=== PATIENT | male | born 1960 | race Caucasian/White ===

== ENCOUNTER → 2022-02-13 | Outpatient (CLI) | payer SELFPAY ==
[~2022-02-13] MED LIST: ALBU90OI INH; ASTEPRO205.5 MCG/; B-COMPLEX PLUS1 EACH; BP MED; BUDE6HFA INH; CYCL10 PO; ERGO400; HYDACE5 PO; Lisinopril2.5 MG; MONT4 PO; MUCINEX COLD &177 ML; Multiple Vitam1 EAC1; NAPR250; NAPR375 PO; OXYACE5T PO; PRED10 PO; PROM25 PO; Percocet 5-3251 EACH PO; Prinivil10 MG PO; RANI150; TAMS.4ER PO; TOCO400; Valium5 MG PO; Vitamin C100 M1
[2022-02-13 17:52] LABS: BASOPHILS ABSOLUTE AUTO 0.04 K/mm3 (0.00-0.23); BASOPHILS PERCENT AUTO 1 % (0-2); EOSINOPHILS ABSOLUTE AUTO 0.11 K/mm3 (0.00-0.68); EOSINOPHILS PERCENT AUTO 1 % (0-6); Hematocrit 49.6 % (37.0-53.0); Hemoglobin 17.1 g/dL (13.5-17.5); IMMATURE GRAN ABSOLUTE AUTO 0.03 K/mm3 (0.00-0.10); IMMATURE GRAN PERCENT AUTO 0 % (0-1); LYMPHOCYTES ABSOLUTE AUTO 2.84 K/mm3 (0.84-5.20); LYMPHOCYTES PERCENT AUTO 36 % (21-46); MONOCYTES ABSOLUTE AUTO 0.56 K/mm3 (0.16-1.47); MONOCYTES PERCENT AUTO 7 % (4-13); Mean Corpuscular HGB 31.3 pg (26.0-34.0); Mean Corpuscular HGB Conc 34.5 g/dL (31.5-36.5); Mean Corpuscular Volume 91 fL (80-100); Mean Platelet Volume 9.8 fL (9.1-12.4); NEUTROPHILS ABSOLUTE AUTO 4.33 K/mm3 (1.96-9.15); NEUTROPHILS PERCENT AUTO 55 % (41-73); Platelet Count 174 K/mm3 (150-400); RDW Coefficient Variation 12.5 % (11.7-14.2); RDW Standard Deviation 41.3 fL (35.1-46.3); Red Blood Cell Count 5.46 M/mm3 (4.30-5.90); White Blood Cell Count 7.91 K/mm3 (4.00-11.30)
== END | disposition home or self-care (01) ==
LOC: LAB SHORT 17:47
PROVIDERS: Physician Assistant Surgical
DX: R06.00 Dyspnea, unspecified (principal)
CPT/HCPCS: 83880; 84484; 85025

== ENCOUNTER 2024-11-23 12:28 | Day surgery (SDC) | payer OTHER ==
[~2024-11-23] VITALS: Ht 172.7 cm; Wt 207.0 kg
[~2024-11-23 12:28] MED LIST changes: +Atropine Sulfate 0.1 MG/ML 10ML SYR ONE; +Glycopyrrolate 0.2 MG/ML 1MLVIAL ONE; +Lactated Ringer's 1,000 ML IV ONE; +Lidocaine 2% 5 ML SDV ONE; +Methylene Blue 1% 100 MG/10 ML VIAL ONE; +Ondansetron HCl 2 MG / ML 2ML Vial ONE; +ePHEDrine Sulfate 50 MG/ML 1ML Injection ONE
[2024-11-23] MEDS ORDERED: propofoL 50 ML IV ONE ×2 (12:37→14:06)
[2024-11-23] MEDS ORDERED: OMEP20ER (12:50)
[2024-11-23] MEDS ORDERED: FEROSUL325 MG (12:50)
[2024-11-23] MEDS ORDERED: MONT10T (12:50)
[2024-11-23] MEDS ORDERED: PSEU120ER (12:51)
[2024-11-23] MEDS ORDERED: WIXELA 250-501 EAC1 (12:51)
[2024-11-23] MEDS ORDERED: Lactated Ringer's 1,000 ML IV ONE (13:15)
[2024-11-23 15:01] VITALS: BP 119/77
== END 2024-11-23 14:53 | disposition home or self-care (01) ==
LOC: ORSCSDS 12:28
PROVIDERS: Specialist
PROC: 0DBM8ZX Excision of Descending Colon, Via Natural or Artificial Opening Endoscopic, Diagnostic (ICD-10-PCS; principal; 2024-11-23 14:00)
PROC: 0DB78ZX Excision of Stomach, Pylorus, Via Natural or Artificial Opening Endoscopic, Diagnostic (ICD-10-PCS; principal; 2024-11-23 14:00)
PROC: 0DBN8ZX Excision of Sigmoid Colon, Via Natural or Artificial Opening Endoscopic, Diagnostic (ICD-10-PCS; principal; 2024-11-23 14:00)
DX: Z12.11 Encounter for screening for malignant neoplasm of colon (principal); Z86.0100 Personal history of colon polyps, unspecified; K29.70 Gastritis, unspecified, without bleeding; D50.9 Iron deficiency anemia, unspecified; K21.9 Gastro-esophageal reflux disease without esophagitis; K31.9 Disease of stomach and duodenum, unspecified; D12.4 Benign neoplasm of descending colon; K63.5 Polyp of colon; K57.30 Diverticulosis of large intestine without perforation or abscess without bleeding; G47.33 Obstructive sleep apnea (adult) (pediatric); I10 Essential (primary) hypertension; J45.909 Unspecified asthma, uncomplicated; G40.909 Epilepsy, unspecified, not intractable, without status epilepticus; Z79.899 Other long term (current) drug therapy
CPT/HCPCS: 82947; 88305; 88342; J0461; J2405; J2704; J7120; Q9968

== ENCOUNTER → 2025-07-30 | Outpatient (CLI) | payer OTHER ==
[~2025-07-30] MED LIST changes: -Atropine Sulfate 0.1 MG/ML 10ML SYR ONE; +FEROSUL325 MG; -Glycopyrrolate 0.2 MG/ML 1MLVIAL ONE; -Lactated Ringer's 1,000 ML IV ONE; -Lidocaine 2% 5 ML SDV ONE; +MONT10T; -Methylene Blue 1% 100 MG/10 ML VIAL ONE; +OMEP20ER; -Ondansetron HCl 2 MG / ML 2ML Vial ONE; +PSEU120ER; +WIXELA 250-501 EAC1; -ePHEDrine Sulfate 50 MG/ML 1ML Injection ONE
[2025-07-30 14:17] LABS: BASOPHILS ABSOLUTE AUTO 0.05 K/mm3 (0.00-0.23); BASOPHILS PERCENT AUTO 1 % (0-2); EOSINOPHILS ABSOLUTE AUTO 0.06 K/mm3 (0.00-0.68); EOSINOPHILS PERCENT AUTO 1 % (0-6); Hematocrit 51.3 % (37.0-53.0); Hemoglobin 17.2 g/dL (13.5-17.5); IMMATURE GRAN ABSOLUTE AUTO 0.03 K/mm3 (0.00-0.10); IMMATURE GRAN PERCENT AUTO 0 % (0-1); LYMPHOCYTES ABSOLUTE AUTO 1.94 K/mm3 (0.84-5.20); LYMPHOCYTES PERCENT AUTO 24 % (21-46); MONOCYTES ABSOLUTE AUTO 0.65 K/mm3 (0.16-1.47); MONOCYTES PERCENT AUTO 8 % (4-13); Mean Corpuscular HGB Conc 33.5 g/dL (31.5-36.5); Mean Corpuscular Volume 95 fL (80-100); NEUTROPHILS ABSOLUTE AUTO 5.27 K/mm3 (1.96-9.15); NEUTROPHILS PERCENT AUTO 66 % (41-73); NRBC ABSOLUTE 0.00 K/mm3 (0.00-0.02); NRBC Auto 0.0 /100 WBC (0.0-0.2); Platelet Count 189 K/mm3 (150-400); RDW Coefficient Variation 12.1 % (11.7-14.2); RDW Standard Deviation 42.2 fL (35.1-46.3)
[2025-07-30 14:26] LABS: Alanine Aminotransfer (ALT/SGP 58.0 U/L (12-78); Albumin, Blood 3.4 g/dL (3.4-5.0); Albumin/Globulin Ratio 1.0 (0.8-1.8); Anion Gap 11.0 mmol/L (3-11); Aspartate Aminotrans (AST/SGOT 47.0 U/L (12-37); Bilirubin, Total 0.4 mg/dL (0.1-1.0); Blood Urea Nitrogen 15.0 mg/dL (8-24); CO2, Blood 29.0 mmol/L (21-32); Calcium, Blood 9.4 mg/dL (8.5-10.1); Chloride, Blood 104.0 mmol/L (98-108); Creatinine, Blood 1.0 mg/dL (0.60-1.20); Globulin, Blood 3.4 g/dL (2.2-4.0); Glucose, Blood 130.0 mg/dL (70-99); Potassium, Blood 4.2 mmol/L (3.5-5.5); Sodium, Blood 140.0 mmol/L (136-145); Total Protein, Blood 6.8 g/dL (6.4-8.2)
== END ==
LOC: LAB 14:13 → LAB SHORT 14:13
PROVIDERS: Physician Assistant
DX: R10.9 Unspecified abdominal pain (principal)
CPT/HCPCS: 80053; 83690; 85025

== ENCOUNTER 2025-08-15 11:35 | Observation (INO) | payer OTHER ==
[~2025-08-15 11:35] MED LIST changes: -MONT10T; +MONT10T PO; -OMEP20ER; +OMEP20ER PO; -PSEU120ER; +PSEU120ER PO
[2025-08-15 17:35] VITALS: BP 148/100
[2025-08-15] MEDS ORDERED: LOSA50 PO (17:57)
[2025-08-15] MEDS ORDERED: GABA100 PO (17:58)
[2025-08-15] MEDS ORDERED: TRELEGY ELLIPT1 EAC1 INH (17:59)
[2025-08-15] MEDS ORDERED: Tobrex5 ML RIGHTEYE (18:00)
[2025-08-15] MEDS ORDERED: KLONOPIN0.5 M9 PO (18:06)
[2025-08-15] MEDS ORDERED: DEPO-TESTO200 MG/18 IM (18:07)
[2025-08-15] MEDS ORDERED: TAMSULOSIN HCL0.4 M1 PO (18:07)
[2025-08-15 18:30] LABS: BASOPHILS ABSOLUTE AUTO 0.06 K/mm3 (0.00-0.23); BASOPHILS PERCENT AUTO 1 % (0-2); EOSINOPHILS ABSOLUTE AUTO 0.04 K/mm3 (0.00-0.68); EOSINOPHILS PERCENT AUTO 1 % (0-6); Hematocrit 50.9 % (37.0-53.0); Hemoglobin 17.2 g/dL (13.5-17.5); IMMATURE GRAN ABSOLUTE AUTO 0.02 K/mm3 (0.00-0.10); IMMATURE GRAN PERCENT AUTO 0 % (0-1); LYMPHOCYTES ABSOLUTE AUTO 2.13 K/mm3 (0.84-5.20); LYMPHOCYTES PERCENT AUTO 30 % (21-46); MONOCYTES ABSOLUTE AUTO 0.70 K/mm3 (0.16-1.47); MONOCYTES PERCENT AUTO 10 % (4-13); Mean Corpuscular HGB Conc 33.8 g/dL (31.5-36.5); Mean Corpuscular Volume 92 fL (80-100); NEUTROPHILS ABSOLUTE AUTO 4.08 K/mm3 (1.96-9.15); NEUTROPHILS PERCENT AUTO 58 % (41-73); NRBC ABSOLUTE 0.00 K/mm3 (0.00-0.02); NRBC Auto 0.0 /100 WBC (0.0-0.2); Platelet Count 159 K/mm3 (150-400); RDW Coefficient Variation 11.9 % (11.7-14.2); RDW Standard Deviation 40.4 fL (35.1-46.3)
--- NOTE | 2025-08-15 18:37 | NUR ---
PATIENT WAS A DIRECT ADMIT FROM [place]. TELEPHONE ORDERS RECEIVED FROM DR CHANG. IV STARTED AND LABS DRAWN. EKG DONE. PATIENT TO HAVE A CT OF ABDOMEN AND PELVIS TONIGHT. PATIENT REPORTS L SIDED ABDOMINAL PAIN THAT RADIATES UP L CHEST AND TO LEFT SHOULDER AND AROUND LOWER BACK. PATIENT REPORTS THAT PAIN A 4/10 AT THIS TIME. ORIENTED TO ROOM AND USE OF CALL LIGHT. MED REC COMPLETED. HEART HEALTHY DIET SERVED AND PATIENT DENIES ANY FURTHER NEEDS AT THIS TIME. WILL REPORT OFF TO FINAL BLOCK PRESS OPERATOR.
[2025-08-15 19:04] LABS: Alanine Aminotransfer (ALT/SGP 37.0 U/L (12-78); Albumin, Blood 3.7 g/dL (3.4-5.0); Albumin/Globulin Ratio 1.3 (0.8-1.8); Anion Gap 6.0 mmol/L (3-11); Aspartate Aminotrans (AST/SGOT 20.0 U/L (12-37); Bilirubin, Total 0.6 mg/dL (0.1-1.0); Blood Urea Nitrogen 17.0 mg/dL (8-24); CO2, Blood 29.0 mmol/L (21-32); Calcium, Blood 8.9 mg/dL (8.5-10.1); Chloride, Blood 106.0 mmol/L (98-108); Creatinine, Blood 0.95 mg/dL (0.60-1.20); Globulin, Blood 2.9 g/dL (2.2-4.0); Glucose, Blood 116.0 mg/dL (70-99); Potassium, Blood 4.2 mmol/L (3.5-5.5); Sodium, Blood 137.0 mmol/L (136-145); Thyroid Stimulating Hormone 1.83 uIU/mL (0.360-4.800); Total Protein, Blood 6.6 g/dL (6.4-8.2)
[2025-08-15 19:30] VITALS: BP 160/103
[2025-08-15 23:21] VITALS: BP 145/72
[2025-08-16 04:54] VITALS: BP 143/90
--- NOTE | 2025-08-16 05:48 | NUR ---
SHIFT SUMMARY PT A&Ox4 AND PLEASANT. PT REPORTS PAIN THAT RADIATES THROUGH ENTIRE BACK. STATES PAIN "FEELS LIKE AFTER A CRASH" REPORTS ACHY, CONSTANT PAIN. MEDICATED PER EMAR WITH GOOD EFFECT. PT TAKEN FOR CAT SCAN AT START OF SHIFT. HOME CPAP SET UP BY RT AND PT USED T/O NIGHT. CONTINIOUS BOIX IN PLACE. PER TELE, PT HAS BEEN NSR IN THE 60's HOWEVER, PT DID HAVE A 5 BEAT RUN OF ALTERNATING BUNDLE. PT UP TO BR DURING THIS EPISODE AND DENIED PAIN BUT DID FEEL A "LTTLE FLUTTER" OTHERWISE ASYMPTOMATIC. NPO AT MIDNIGHT. IND IN ROOM. PT ABLE TO SLEEP MOST OF THE NIGHT. VSS. BED IN LOWEST POSITION AND CALL LIGHT IN REACH.
[2025-08-16 07:18] VITALS: BP 149/87
[2025-08-16] MEDS ORDERED: Albuterol HFA200 ACT/6.7 GM INH INH PRN (08:20)
[2025-08-16] MEDS ORDERED: Ipratropium Bromide INH 0.02% 0.5 mg/2.5ML Vial INH SCH (08:25)
[2025-08-16] MEDS ORDERED: Formoterol/Mometasone MDI 5/100 mcg 13 GM INH SCH (08:25)
[2025-08-16] MEDS ORDERED: Tobramycin 0.3% Opth Soln 5 ML RIGHTEYE SCH (09:00)
[2025-08-16] MEDS ORDERED: Pseudoephedrine HCl 120 MG TabCR PO SCH (09:00)
--- NOTE | 2025-08-16 09:55 | NUR ---
Pt. is awake in bed when he weclomes my visit. Pt. 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 SPouse and demand generation manager are at bedside. Facilitated a life update and listened with empathy and a claming presence. Pt. displayed evidence of being encouraged. Prayed with the Pt. and stay until his nursing team arrived. Pt. and spouse verbalize gratitue for the spiritual care visit.
[2025-08-16] MEDS ORDERED: TRELEGY ELLIPTA INH SCH (10:05)
[2025-08-16] MEDS ORDERED: NEOPOLDEXO BOTHEYES (10:13)
[2025-08-16 11:29] VITALS: BP 155/87
[2025-08-16 15:41] VITALS: BP 142/91
--- NOTE | 2025-08-16 18:15 | NUR ---
PATIENT A/OX4, UP INDEPENDENTLY IN ROOM. VSS, ON RA. SR ON TELE ON TELE IN THE 60'S. PATIENT RATES PAIN TO L ABDOMEN/CHEST 3/10 THIS EVENING AFTER TYLENOL AND OXYCODONE. STRESS TEST COMPLETED TODAY. PATIENT ON HEART HEALTHY DIET AND TOLERATING WELL. REPORTS MULTIPLE LOOSE STOOLS TODAY WITH STOOL LOOKING PALE IN COLOR. DENIES ANY NAUSEA OR VOMITTING. VSS, ON RA. CPAP USED AT NIGHT. PATIENT PLEASANT AND COOEPRATIVE AND ABLE TO MAKE NEEDS KNOWN.
[2025-08-16 19:13] VITALS: BP 144/87
[2025-08-16] MEDS ORDERED: Isosorbide Mononitrate 30 MG TABCR PO ONE (19:20)
[2025-08-16 23:26] VITALS: BP 125/84
[2025-08-17 01:13] VITALS: BP 139/81
--- NOTE | 2025-08-17 05:02 | NUR ---
SHIFT SUMMARY PT A&Ox4 AND PLEASANT. DR CHANG AT BEDSIDE AT START OF SHIFT TO DISCUSS STRESS TEST RESULTS AND PLAN OF CARE. CARDIOLOGY CONSULT PLACED AND MESSAGE LEFT WITH DR CHATMAN ANSWERING SERVICE. PT REPORTS PAIN IMPROVING BUT DID HAVE LOWER BACK PAIN AND WAS MEDICATED PER EMAR. PT USED HOME CPAP DURING THE NIGHT. VSS. NO EVENTS ON TELE AND PT RUNNING SR IN THE 70's. IND IN ROOM. BED IN LOWEST POSITION AND CALL LIGHT IN REACH.
[2025-08-17 05:57] VITALS: BP 105/69
[2025-08-17 07:13] VITALS: BP 117/65
[2025-08-17] MEDS ORDERED: TRELEGY ELLIPTA INH SCH (07:30)
[2025-08-17 08:08] LABS: BASOPHILS ABSOLUTE AUTO 0.06 K/mm3 (0.00-0.23); BASOPHILS PERCENT AUTO 1 % (0-2); EOSINOPHILS ABSOLUTE AUTO 0.04 K/mm3 (0.00-0.68); EOSINOPHILS PERCENT AUTO 0 % (0-6); Hematocrit 52.5 % (37.0-53.0); Hemoglobin 17.5 g/dL (13.5-17.5); IMMATURE GRAN ABSOLUTE AUTO 0.04 K/mm3 (0.00-0.10); IMMATURE GRAN PERCENT AUTO 0 % (0-1); LYMPHOCYTES ABSOLUTE AUTO 2.34 K/mm3 (0.84-5.20); LYMPHOCYTES PERCENT AUTO 23 % (21-46); MONOCYTES ABSOLUTE AUTO 0.91 K/mm3 (0.16-1.47); MONOCYTES PERCENT AUTO 9 % (4-13); Mean Corpuscular HGB Conc 33.3 g/dL (31.5-36.5); Mean Corpuscular Volume 94 fL (80-100); NEUTROPHILS ABSOLUTE AUTO 6.75 K/mm3 (1.96-9.15); NEUTROPHILS PERCENT AUTO 67 % (41-73); NRBC ABSOLUTE 0.00 K/mm3 (0.00-0.02); NRBC Auto 0.0 /100 WBC (0.0-0.2); Platelet Count 168 K/mm3 (150-400); RDW Coefficient Variation 11.8 % (11.7-14.2); RDW Standard Deviation 41.1 fL (35.1-46.3)
[2025-08-17 08:37] LABS: Alanine Aminotransfer (ALT/SGP 35 U/L (12-78); Albumin, Blood 3.5 g/dL (3.4-5.0); Albumin/Globulin Ratio 1.2 (0.8-1.8); Anion Gap 8 mmol/L (3-11); Aspartate Aminotrans (AST/SGOT 14 U/L (12-37); Bilirubin, Total 1.0 mg/dL (0.1-1.0); Blood Urea Nitrogen 13 mg/dL (8-24); CHOL/HDL RATIO 8.6; CO2, Blood 29 mmol/L (21-32); Calcium, Blood 9.3 mg/dL (8.5-10.1); Chloride, Blood 105 mmol/L (98-108); Cholesterol 274 mg/dL (50-200); Creatinine, Blood 1.14 mg/dL (0.60-1.20); Globulin, Blood 2.8 g/dL (2.2-4.0); Glucose, Blood 112 mg/dL (70-99); HDL Cholesterol 32 mg/dL (>39); LDL/HDL RATIO 6.6; Low Density Lipoprotein Chol 211 mg/dL (0-110); Potassium, Blood 4.3 mmol/L (3.5-5.5); Sodium, Blood 138 mmol/L (136-145); Thyroid Stimulating Hormone 4.670 uIU/mL (0.360-4.800); Total Protein, Blood 6.3 g/dL (6.4-8.2); Triglycerides 154 mg/dL (30-160); Very Low Density Lipoprot Chol 30 mg/dL (6-32)
[2025-08-17] MEDS ORDERED: IBU600 M1 PO (11:09)
[2025-08-17] MEDS ORDERED: AIRSUPRA 90-810.7 GM INH (11:10)
[2025-08-17] MEDS ORDERED: DUPIXENT300 MG/21 SC (11:12)
[2025-08-17] MEDS ORDERED: LORazepam 2 MG/ML 1ML Injection IV ONE (15:00)
--- NOTE | 2025-08-17 15:13 | NUR ---
Pt. is awake and sitting in a chair when he welcomes my visit. Nurse is present for some of our visit. 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 Listen with empathy and a calming presence. Prayed with the Pt. Pt. verbalized gratitude for the spiritual care visit.
--- NOTE | 2025-08-17 16:01 | NUR ---
PT A/OX4. PLEASANT AND COOPERATIVE WITH CARE. INDEPENDENT IN ROOM. NO ACUTE EVENTS ON TELE. PTS PAIN HAS BEEN TREATED PER EMAR. DR. CHATMAN ROUNDED ON PT TO DISCUSS STRESS TEST RESULTS, RECOMMENDED NO CARDIAC INTERVENTIONS AT THIS TIME. AN MRI HAS BEEN ORDERED TO FURTHER EVALUATE SOURCE OF PAIN. NO ACUTE NEEDS AT THIS TIME.
[2025-08-17 16:46] VITALS: BP 138/86
[2025-08-17] MEDS ORDERED: LORazepam 2 MG/ML 1ML Injection IV PRN (17:30)
[2025-08-17 19:58] VITALS: BP 151/92
[2025-08-18 04:28] VITALS: BP 122/74
--- NOTE | 2025-08-18 04:31 | NUR ---
SHIFT SUMMARY: PATIENT SLEPT SOUNDLY THROUGHOUT THIS NIGHT. PATIENT REMAINS IND IN ROOM AND UTILIZED BATHROOM WITHOUT ASSISTANCE. CALLS WHEN NEEDED. BED IN LOWEST POSITION AND NO NEW OR ACUTE CHANGED DURING THIS SHIFT. PLAN TO HAVE ECHO COMPLETED TO DAY WITH POSSIBLE DISCHARGE. WILL CONTINUE TO MONITOR.
[2025-08-18 07:24] VITALS: BP 133/87
[2025-08-18] MEDS ORDERED: METO25ER PO (14:15)
[2025-08-18] MEDS ORDERED: OXAYDO5 M1 PO (14:17)
--- NOTE | 2025-08-18 15:19 | NUR ---
assumed care of pt. pleasent a/o pt awaiting mri for discharge. c/o pain to back and treated with prn cristiano medicarion. assisted to shower. pt ind in room. 1130 ativan given for claustrophobia and pt taken down for mri. at bedside. 1300 pt returned, Dr Dunn notified, discharge orders given iv dced pt dced
[2025-08-20] MEDS ORDERED: Testosterone Cypionate 200 MG / ML Vial IM SCH (09:00)
== END 2025-08-18 14:41 | disposition hospice, home (50) ==
LOC: MEDS 11:35
PROVIDERS: ADMIT Internal Medicine
DX: M54.50 Low back pain, unspecified (principal); R10.12 Left upper quadrant pain; K75.81 Nonalcoholic steatohepatitis (NASH); G25.3 Myoclonus; E29.1 Testicular hypofunction; I10 Essential (primary) hypertension; J45.909 Unspecified asthma, uncomplicated; G47.33 Obstructive sleep apnea (adult) (pediatric); E66.9 Obesity, unspecified; Z88.2 Allergy status to sulfonamides; Z88.1 Allergy status to other antibiotic agents; Z88.5 Allergy status to narcotic agent; Z88.0 Allergy status to penicillin; Z79.899 Other long term (current) drug therapy
CPT/HCPCS: 36415; 72141; 72146; 74177; 78452; 80053; 80061; 83036; 84443; 84484; 85025; 93017; 93306; 94640; 94664; 94760; 94762; 96374; A9270; A9500; G0378; G0379; J0706; J2060; J2785; Q9967

== ENCOUNTER → 2025-10-08 | Outpatient (CLI) | payer OTHER ==
[~2025-10-08] MED LIST changes: +AIRSUPRA 90-810.7 GM INH; +DEPO-TESTO200 MG/18 IM; +DUPIXENT300 MG/21 SC; +GABA100 PO; +IBU600 M1 PO; +KLONOPIN0.5 M9 PO; +LOSA50 PO; +METO25ER PO; +NEOPOLDEXO BOTHEYES; +OXAYDO5 M1 PO; +TAMSULOSIN HCL0.4 M1 PO; +TRELEGY ELLIPT1 EAC1 INH; +Tobrex5 ML RIGHTEYE
[2025-10-08 18:44] LABS: BASOPHILS ABSOLUTE AUTO 0.04 K/mm3 (0.00-0.23); BASOPHILS PERCENT AUTO 1 % (0-2); EOSINOPHILS ABSOLUTE AUTO 0.06 K/mm3 (0.00-0.68); EOSINOPHILS PERCENT AUTO 1 % (0-6); Hematocrit 47.1 % (37.0-53.0); Hemoglobin 16.3 g/dL (13.5-17.5); IMMATURE GRAN ABSOLUTE AUTO 0.03 K/mm3 (0.00-0.10); IMMATURE GRAN PERCENT AUTO 0 % (0-1); LYMPHOCYTES ABSOLUTE AUTO 2.63 K/mm3 (0.84-5.20); LYMPHOCYTES PERCENT AUTO 35 % (21-46); MONOCYTES ABSOLUTE AUTO 0.54 K/mm3 (0.16-1.47); MONOCYTES PERCENT AUTO 7 % (4-13); Mean Corpuscular HGB Conc 34.6 g/dL (31.5-36.5); Mean Corpuscular Volume 90 fL (80-100); NEUTROPHILS ABSOLUTE AUTO 4.26 K/mm3 (1.96-9.15); NEUTROPHILS PERCENT AUTO 56 % (41-73); NRBC ABSOLUTE 0.00 K/mm3 (0.00-0.02); NRBC Auto 0.0 /100 WBC (0.0-0.2); Platelet Count 174 K/mm3 (150-400); RDW Coefficient Variation 11.9 % (11.7-14.2); RDW Standard Deviation 38.9 fL (35.1-46.3)
[2025-10-08 18:55] LABS: Alanine Aminotransfer (ALT/SGP 44.0 U/L (12-78); Albumin, Blood 3.4 g/dL (3.4-5.0); Albumin/Globulin Ratio 1.0 (0.8-1.8); Anion Gap 13.0 mmol/L (3-11); Aspartate Aminotrans (AST/SGOT 25.0 U/L (12-37); Bilirubin, Total 0.5 mg/dL (0.1-1.0); Blood Urea Nitrogen 19.0 mg/dL (8-24); CO2, Blood 27.0 mmol/L (21-32); Calcium, Blood 9.1 mg/dL (8.5-10.1); Chloride, Blood 106.0 mmol/L (98-108); Creatinine, Blood 1.21 mg/dL (0.60-1.20); Globulin, Blood 3.4 g/dL (2.2-4.0); Glucose, Blood 126.0 mg/dL (70-99); Potassium, Blood 3.8 mmol/L (3.5-5.5); Sodium, Blood 142.0 mmol/L (136-145); Total Protein, Blood 6.8 g/dL (6.4-8.2)
== END ==
LOC: LAB 18:40 → LAB SHORT 18:40
PROVIDERS: Family Medicine
DX: R06.02 Shortness of breath (principal)
CPT/HCPCS: 80053; 85025